=== PATIENT | male | born 1995 | race African-American/Black ===

== ENCOUNTER 2020-04-30 16:43 | Emergency (ER) | payer OTHER ==
[~2020-04-30] VITALS: Ht 177.8 cm; Wt 81.7 kg
[~2020-04-30 16:43] MED LIST: ALBUTEROL2.5 MG/0.1 INH; NORCO 5-325 TA1 EACH PO
[2020-04-30] MEDS ORDERED: KEFLEX500 M1 PO (18:16)
[2020-04-30 19:01] VITALS: BP 128/89
== END 2020-04-30 19:01 | disposition home or self-care (01) ==
LOC: ER 16:43
DX: S01.81XA Laceration without foreign body of other part of head, initial encounter (principal); S51.812A Laceration without foreign body of left forearm, initial encounter; S01.511A Laceration without foreign body of lip, initial encounter; Z79.899 Other long term (current) drug therapy; W26.0XXA Contact with knife, initial encounter; Y93.89 Activity, other specified; Y92.89 Other specified places as the place of occurrence of the external cause; Y99.8 Other external cause status